=== PATIENT | female | born 1985 | race Caucasian/White ===

== ENCOUNTER → 2019-02-13 | Outpatient (CLI) | payer OTHER ==
[~2019-02-13] MED LIST: COMPLETE OMEGA1 EACH PO; PRENATABS RX T1 EACH PO
== END | disposition home or self-care (01) ==
LOC: PRENATAL 15:30
DX: O32.0XX1 Maternal care for unstable lie, fetus 1 (principal); O09.523 Supervision of elderly multigravida, third trimester

== ENCOUNTER 2019-02-14 08:15 | Outpatient (CLI) | payer OTHER | END 2019-02-14 20:00 | disposition home or self-care (01) | LOC: OBS/DEL 08:15 | DX: O32.1XX0 Maternal care for breech presentation, not applicable or unspecified (principal); Z34.83 Encounter for supervision of other normal pregnancy, third trimester ==

== ENCOUNTER 2019-02-17 13:45 | Inpatient (IN) | payer OTHER ==
[~2019-02-17] VITALS: Ht 154.9 cm; Wt 2.7 kg
[2019-02-17] MEDS ORDERED: PRENATABS RX T1 EACH PO (15:02)
[2019-02-17] MEDS ORDERED: COMPLETE OMEGA1 EACH PO (15:02)
== END 2019-02-24 14:12 | disposition home or self-care (01) | DRG 785 ==
LOC: O/R 13:45 → OB/GYN 02-21 22:56 → LDR 02-21 22:56 → OB/GYN 02-22 01:54 → O/R 02-28 13:45
PROVIDERS: ADMIT Specialist
PROC: 4A1HXCZ Monitoring of Products of Conception, Cardiac Rate, External Approach (ICD-10-PCS; 2019-02-21)
PROC: 10D00Z1 Extraction of Products of Conception, Low, Open Approach (ICD-10-PCS; principal; 2019-02-22)
PROC: 0UL70ZZ Occlusion of Bilateral Fallopian Tubes, Open Approach (ICD-10-PCS; 2019-02-22)
DX: O82 Encounter for cesarean delivery without indication (principal); O64.1XX0 Obstructed labor due to breech presentation, not applicable or unspecified; Z3A.38 38 weeks gestation of pregnancy; Z37.0 Single live birth; Z30.2 Encounter for sterilization